=== PATIENT | female | born 1955 | race Caucasian/White ===

== ENCOUNTER 2019-11-24 08:51 | Outpatient (RCR) | payer MEDICARE, BC ==
[~2019-11-24] VITALS: Ht 172.7 cm; Wt 128.0 kg
[2019-11-24] MEDS ORDERED: LOPRESSOR 550 MG/TAB PO (09:08)
[2019-11-24] MEDS ORDERED: ZOCOR 40MG40 MG PO (09:08)
[2019-11-24] MEDS ORDERED: EPA FISH OIL1 SGL PO (09:09)
[2019-11-24] MEDS ORDERED: VITAMIN B-6100 MG PO (09:10)
[2019-11-24] MEDS ORDERED: CALCIUM CARBON650 M2 PO (09:11)
[2019-11-24 09:19] VITALS: BP 137/58; PULSE 75; TEMP 97.6
== END 2019-11-24 10:59 | disposition home or self-care (01) ==
LOC: EUO 08:51
DX: Z45.2 Encounter for adjustment and management of vascular access device (principal); C50.411 Malignant neoplasm of upper-outer quadrant of right female breast
CPT/HCPCS: C1751

== ENCOUNTER → 2021-03-19 | Outpatient (CLI) | payer MEDICARE, BC ==
[~2021-03-19] MED LIST: CALCIUM CARBON650 M2 PO; EPA FISH OIL1 SGL PO; LOPRESSOR 550 MG/TAB PO; VITAMIN B-6100 MG PO; ZOCOR 40MG40 MG PO
== END ==
LOC: MC.RAD 12:40
DX: N63.10 Unspecified lump in the right breast, unspecified quadrant (principal); Z85.3 Personal history of malignant neoplasm of breast; Z98.890 Other specified postprocedural states